=== PATIENT | male | born 1985 | race Caucasian/White ===

== ENCOUNTER 2018-05-09 18:07 | Emergency (ER) | payer MEDICAID ==
[~2018-05-09] VITALS: Ht 175.3 cm; Wt 169.0 kg
[~2018-05-09 18:07] MED LIST: ZOF4T PO
[2018-05-09] MEDS ORDERED: IBUP-1984 PO (19:11)
[2018-05-09 19:19] VITALS: BP 150/97
== END 2018-05-09 19:20 | disposition home or self-care (01) ==
LOC: ER 18:07
DX: M25.561 Pain in right knee (principal); J45.909 Unspecified asthma, uncomplicated; F12.90 Cannabis use, unspecified, uncomplicated; Z98.890 Other specified postprocedural states; Z79.899 Other long term (current) drug therapy
CPT/HCPCS: 99282; A6449

== ENCOUNTER 2018-12-13 10:33 | Emergency (ER) | payer MEDICAID ==
[~2018-12-13] VITALS: Ht 177.8 cm; Wt 168.2 kg
[2018-12-13 10:41] VITALS: BP 160/104
[2018-12-13] MEDS ORDERED: TETanus/Pertussis (Acell)/Diphther VAC/PF (Tdap-Adult) 0.5ml syringe IM ONE (10:55)
[2018-12-13] MEDS ORDERED: LIDOcaine 1% 30ml preserv. free vial IJ ONE (11:00)
== END 2018-12-13 12:09 | disposition home or self-care (01) ==
LOC: ER 10:34
DX: S61.210A Laceration without foreign body of right index finger without damage to nail, initial encounter (principal); J45.909 Unspecified asthma, uncomplicated; F12.90 Cannabis use, unspecified, uncomplicated; Z98.890 Other specified postprocedural states; W45.8XXA Other foreign body or object entering through skin, initial encounter; Y93.89 Activity, other specified; Y92.89 Other specified places as the place of occurrence of the external cause; Y99.9 Unspecified external cause status
CPT/HCPCS: 12001; 73140; 90471; 90715; 99283; J3490

== ENCOUNTER 2019-10-24 20:28 | Emergency (ER) | payer MEDICAID ==
[~2019-10-24] VITALS: Ht 177.8 cm; Wt 177.3 kg
[~2019-10-24 20:28] MED LIST changes: +IBUP-1986 PO
[2019-10-24 20:37] VITALS: BP 141/96
== END 2019-10-24 22:29 | disposition home or self-care (01) ==
LOC: ER 20:30
DX: R20.8 Other disturbances of skin sensation (principal); J45.909 Unspecified asthma, uncomplicated; F12.90 Cannabis use, unspecified, uncomplicated; Z98.890 Other specified postprocedural states; Z79.899 Other long term (current) drug therapy
CPT/HCPCS: 99281

== ENCOUNTER 2021-01-27 17:06 | Inpatient (IN) | payer MEDICAID ==
[~2021-01-27] VITALS: Ht 177.8 cm; Wt 170.5 kg
[2021-01-27 18:45] LABS: BASOPHILS % (AUTO) 0.3 % (0-1); EOSINOPHILS # (AUTO) 0.3 X10'3 (0-0.9); EOSINOPHILS % (AUTO) 3.1 % (0-6); HEMATOCRIT 41.4 % (42.0-52.0); LYMPHOCYTES # (AUTO) 1.7 X10'3 (1.1-4.8); LYMPHOCYTES % (AUTO) 20.8 % (21-51); MEAN CORPUSCULAR HEMOGLOBIN 28.7 PG (27.0-31.0); MEAN CORPUSCULAR HGB CONC 33.8 g/dL (33.0-36.5); MEAN CORPUSCULAR VOLUME 84.9 FL (78-98); MEAN PLATELET VOLUME 8.7 FL (7.4-10.4); MONOCYTES # (AUTO) 0.7 X10'3 (0-0.9); MONOCYTES % (AUTO) 8.5 % (2-12); NEUTROPHILS # (AUTO) 5.6 X10'3 (1.8-7.7); NEUTROPHILS % (AUTO) 67.3 % (42-75); PLATELET COUNT 201 X10'3 (140-440); RED BLOOD COUNT 4.88 X10'6 (4.70-6.10); WHITE BLOOD COUNT 8.3 X10'3 (4.5-11.0)
[2021-01-27 18:50] LABS: ALANINE AMINOTRANSFERASE 49 U/L (12-78); ALBUMIN 3.3 G/DL (3.4-5.0); ALBUMIN/GLOBULIN RATIO 0.8 (1.1-1.5); ALKALINE PHOSPHATASE 70 IU/L (46-116); ANION GAP 8 (8-16); ASPARTATE AMINO TRANSFERASE 55 U/L (10-37); BILIRUBIN,TOTAL 0.4 MG/DL (0.1-1.0); BLOOD UREA NITROGEN 9 MG/DL (7-18); BUN/CREATININE RATIO 10.7 (5.4-32.0); CALCIUM 8.9 MG/DL (8.5-10.1); CHLORIDE 103 MMOL/L (99-107); CREATININE 0.84 MG/DL (0.60-1.10); GLUCOSE 123 MG/DL (70-104); POTASSIUM 3.4 MMOL/L (3.5-5.1); SODIUM 138 MMOL/L (135-145); TOTAL CARBON DIOXIDE 27.1 MMOL/L (24-32); TOTAL PROTEIN 7.4 G/DL (6.4-8.2); eGFR > 90 ML/MIN
[2021-01-27] MEDS ORDERED: aspirin 81mg tab.chew PO ONE (19:00)
[2021-01-27] MEDS ORDERED: heparin 10,000 units/1 ML INJ IV ONE ×2 (19:00→19:05)
[2021-01-27] MEDS ORDERED: heparin 25,000 UNIT/250ml bag 250 ML IV SCH ×2 (19:00→19:15)
[2021-01-27] MEDS ORDERED: morphine 2 MG/ML inj. syringe IV PRN (19:15)
[2021-01-27] MEDS ORDERED: heparin 10,000 units/1 ML INJ IV PRN (19:15)
[2021-01-27] MEDS ORDERED: nitroGLYCERIN 0.4mg SUBLingual tab SL PRN (19:15)
[2021-01-27] MEDS ORDERED: magnesium Cl slow-release 64mg tablet PO PRN (19:15)
[2021-01-27] MEDS ORDERED: magnesium 2GM in 50ml NS 50 ML IV PRN (19:15)
[2021-01-27] MEDS ORDERED: acetaminophen 325mg tablet PO PRN (19:15)
[2021-01-27] MEDS ORDERED: potassium Cl 20 mEq SR tablet PO PRN ×2 (19:15)
[2021-01-27] MEDS ORDERED: ondansetron/PF 4mg/2ml inj IV PRN (19:15)
[2021-01-27] MEDS ORDERED: mag hydrox/Alum hydrox/simeth 30ml oral suspension PO PRN (19:15)
[2021-01-27] MEDS ORDERED: magnesium hydroxide 30ml (MOM) UD suspension PO PRN (19:15)
[2021-01-27] MEDS ORDERED: potassium Cl 40MEQ/1/2NS 520ml 520 ML IV PRN ×2 (19:15)
[2021-01-27] MEDS ORDERED: magnesium 4gm in 100ml NS 100 ML IV PRN (19:15)
[2021-01-27 19:22] LABS: PARTIAL THROMBOPLASTIN TIME 27 SECONDS (22-32)
[2021-01-27] MEDS: nitroGLYCERIN 0.4mg SUBLingual tab SL PRN ×2 (19:22→22:24)
[2021-01-27] MEDS ORDERED: ALBUTEROL (19:32)
[2021-01-27] MEDS ORDERED: OMEP-50 PO (19:32)
[2021-01-27] MEDS ORDERED: BUDE10.26 PO (19:32)
[2021-01-27] MEDS ORDERED: MONT10TA32 PO (19:32)
[2021-01-27 19:56] LABS: CHOL/HDL RATIO 4.2 (0.00-4.99); CHOLESTEROL 164 MG/DL (0-200); HDL CHOLESTEROL 39 MG/DL (35-60); LDL CHOLESTEROL 106 MG/DL (50-100); TRIGLYCERIDES 87 MG/DL (20-135)
[2021-01-27] MEDS: K and/or MAG REPLACEMENT MC SCH (20:00)
[2021-01-27] MEDS ORDERED: ALBU8HFA PO (20:32)
[2021-01-27 20:45] VITALS: BP 122/77
[2021-01-27 22:00] VITALS: BP 110/70
[2021-01-28] MEDS: heparin 10,000 units/1 ML INJ IV PRN ×2 (01:58→10:42)
[2021-01-28 02:28] VITALS: BP 132/87
[2021-01-28 06:00] VITALS: BP 135/81
--- NOTE | 2021-01-28 06:26 | NUR ---
Problems reprioritized. Patient report given, questions answered & plan of care reviewed with Sary SILVA.
--- NOTE | 2021-01-28 06:31 | NUR ---
Patient in room PCU 3016. I have received report from RICARDO Worrell and had the opportunity to ask questions and assume patient care.
--- NOTE | 2021-01-28 06:36 | NUR ---
Patient in room PCU 3016. I have received report from Gm SILVA and had the opportunity to ask questions and assume patient care.
[2021-01-28 06:45] LABS: BASOPHILS # (AUTO) 0.1 X10'3 (0-0.2); BASOPHILS % (AUTO) 0.8 % (0-1); EOSINOPHILS # (AUTO) 0.3 X10'3 (0-0.9); EOSINOPHILS % (AUTO) 3.5 % (0-6); HEMATOCRIT 42.3 % (42.0-52.0); HEMOGLOBIN 14.2 g/dl (14.0-17.9); LYMPHOCYTES # (AUTO) 2.4 X10'3 (1.1-4.8); MEAN CORPUSCULAR HEMOGLOBIN 28.9 PG (27.0-31.0); MEAN CORPUSCULAR HGB CONC 33.6 g/dL (33.0-36.5); MEAN CORPUSCULAR VOLUME 86.2 FL (78-98); MONOCYTES # (AUTO) 0.7 X10'3 (0-0.9); MONOCYTES % (AUTO) 9.1 % (2-12); NEUTROPHILS # (AUTO) 4.7 X10'3 (1.8-7.7); NEUTROPHILS % (AUTO) 57.6 % (42-75); PLATELET COUNT 215 X10'3 (140-440); RED BLOOD COUNT 4.91 X10'6 (4.70-6.10); RED CELL DISTRIBUTION WIDTH 14.2 % (11.5-14.5); WHITE BLOOD COUNT 8.1 X10'3 (4.5-11.0)
[2021-01-28 06:57] LABS: ALANINE AMINOTRANSFERASE 52 U/L (12-78); ALBUMIN 3.3 G/DL (3.4-5.0); ALBUMIN/GLOBULIN RATIO 0.8 (1.1-1.5); ALKALINE PHOSPHATASE 70 IU/L (46-116); ANION GAP 8 (8-16); ASPARTATE AMINO TRANSFERASE 86 U/L (10-37); BILIRUBIN,TOTAL 0.4 MG/DL (0.1-1.0); BLOOD UREA NITROGEN 10 MG/DL (7-18); BUN/CREATININE RATIO 12.7 (5.4-32.0); CHLORIDE 104 MMOL/L (99-107); CREATININE 0.79 MG/DL (0.60-1.10); GLUCOSE 116 MG/DL (70-104); POTASSIUM 3.4 MMOL/L (3.5-5.1); SODIUM 139 MMOL/L (135-145); TOTAL CARBON DIOXIDE 26.8 MMOL/L (24-32); TOTAL PROTEIN 7.7 G/DL (6.4-8.2); eGFR > 90 ML/MIN
[2021-01-28 07:02] LABS: MAGNESIUM 2.1 MG/DL (1.5-2.4)
[2021-01-28] MEDS ORDERED: aspirin 81mg tab.chew PO SCH (08:00)
[2021-01-28] MEDS: K and/or MAG REPLACEMENT MC SCH (08:00)
[2021-01-28 08:12] LABS: URINE AMPHETAMINE SCREEN NEGATIVE (Neg); URINE BARBITUATE SCREEN NEGATIVE (Neg); URINE BENZODIAZEPINES SCREEN NEGATIVE (Neg); URINE CANNABINOID SCREEN POSITIVE (Neg); URINE COCAINE SCREEN NEGATIVE (Neg); URINE METHADONE SCREEN NEGATIVE (Neg); URINE OPIATE SCREEN NEGATIVE (Neg); URINE PHENCYCLIDINE SCREEN NEGATIVE (Neg)
[2021-01-28] MEDS ORDERED: budesonide 0.5mg/2ml UD nebule IH SCH (09:00)
[2021-01-28] MEDS: albuterol 2.5 MG/3 ML nebule NEB SCH ×2 (09:17→15:00)
[2021-01-28 11:18] VITALS: BP 142/85
[2021-01-28] MEDS ORDERED: verapamil 2.5 mg/ml inj IV ONE (12:36)
[2021-01-28] MEDS ORDERED: fentaNYL/PF 50MCG/1 ML 2ML syringe ONE (12:37)
[2021-01-28] MEDS ORDERED: heparin 1,000 UNITS/NS 500ml 500 ML ONE ×2 (12:37)
[2021-01-28] MEDS ORDERED: midazolam 1 mg/ML 2ml injection ONE ×2 (12:37→13:14)
[2021-01-28] MEDS ORDERED: heparin 1,000unit/ml 10ml vial 10 ML ONE (12:37)
[2021-01-28] MEDS ORDERED: iohexol 350MG/ML 100ml bottle IV ONE (12:37)
[2021-01-28] MEDS ORDERED: LIDOcaine 1% (10mg/ml)w/preservative injection 20ml MDV ONE (12:37)
[2021-01-28] MEDS ORDERED: iohexol 350 MG/ML 50ML vial IV ONE (12:37)
[2021-01-28] MEDS ORDERED: nitroGLYCERIN-Tridil 50MG/D5W 250 ML IV ONE (12:38)
[2021-01-28] MEDS ORDERED: heparin 25,000 UNIT/250ml bag 250 ML IV ONE (13:00)
[2021-01-28] MEDS ORDERED: phenylephrine 10mg/ml inj. ONE (13:18)
--- NOTE | 2021-01-28 13:55 | NUR ---
PAGE TO DR. GODOY PAGER ID: [phone] MESSAGE: CHRISTINA GEORGE ([id number]) S/P PCI WITH NO STENTING, HEPARIN DRIP D/IRMA-PER DR. COOPER, PT BLUAY TO D/C TODAY. THANK YOU, JOEY
[2021-01-28] MEDS ORDERED: normal saline 1000ml 1,000 ML IV SCH (14:15)
[2021-01-28] MEDS ORDERED: OXAZEpam 15mg capsule PO PRN (14:20)
[2021-01-28] MEDS ORDERED: proCHLORperazine 10 MG/2 ml inj IV PRN (14:20)
[2021-01-28] MEDS ORDERED: HYDROcodone/acetaminophen 10/325mg tab PO PRN (14:20)
[2021-01-28] MEDS ORDERED: HYDROcodone/acetaminophen 5mg/325mg tablet PO PRN (14:20)
--- NOTE | 2021-01-28 15:43 | NUR ---
Pt stable for discharge per MD order, all discharge instructions reviewed with patient and all questions answered. All air released from radial pressure cuff per protocol, no bleeding appreciated, gauze and tegaderm applied. PIVs discontinued, cannula intact. Telemetry discontinued, telesales manager notified. All belongings collected and sent with patient. Picked up by family member in private vehicle, wheeled to lobby by staff.
--- NOTE | 2021-01-28 15:45 | NUR ---
PT IVS D/IRMA, CANNULAS INTACT, RIGHT RADIAL SITE PRESSURE CUFF D/IRMA, NO BLEED OR HEMATOMA, PATIENT WHEELED OUT VIA W/C BY RN WITH MOTHER AT SIDE, PATIENT ALERT, ORIENTED, STABLE AT DISCHARGE, ALL QUESTIONS ANSWERED IN REGUARDS TO FOLLOW UP CARE.
== END 2021-01-28 15:37 | disposition home or self-care (01) | DRG 190 ==
LOC: ER 17:06 → ED HOLD 19:14 → EDBEDREQ 20:00 → EDBEDREQTM 20:00 → PCU 3S 20:30
PROVIDERS: ADMIT Family Medicine; ATTEND Internal Medicine
PROC: 4A023N7 Measurement of Cardiac Sampling and Pressure, Left Heart, Percutaneous Approach (ICD-10-PCS; principal; 2021-01-28)
PROC: B2111ZZ Fluoroscopy of Multiple Coronary Arteries using Low Osmolar Contrast (ICD-10-PCS; 2021-01-28)
PROC: B2151ZZ Fluoroscopy of Left Heart using Low Osmolar Contrast (ICD-10-PCS; 2021-01-28)
DX: I21.4 Non-ST elevation (NSTEMI) myocardial infarction (principal); E66.01 Morbid (severe) obesity due to excess calories; E87.6 Hypokalemia; F17.290 Nicotine dependence, other tobacco product, uncomplicated; F12.90 Cannabis use, unspecified, uncomplicated; G25.81 Restless legs syndrome; G47.00 Insomnia, unspecified; Z20.822 Contact with and (suspected) exposure to COVID-19; I10 Essential (primary) hypertension; I20.1 Angina pectoris with documented spasm; J45.909 Unspecified asthma, uncomplicated; K21.9 Gastro-esophageal reflux disease without esophagitis; Z68.43 Body mass index [BMI] 50.0-59.9, adult; Z79.899 Other long term (current) drug therapy
CPT/HCPCS: 36415; 71045; 80053; 80061; 80305; 83735; 83880; 84484; 85025; 85610; 85730; 87081; 87635; 93005; 93306; 93458; 94640; 94760; 96365; 99152; 99153; 99285; A4620; A6258; C1769; C1894; G0378; J1644; J2001; J2250; J2370; J3010; J3490; J7030; J7626; Q9967

== ENCOUNTER 2021-06-08 13:50 | Emergency (ER) | payer MEDICAID ==
[~2021-06-08] VITALS: Ht 177.8 cm; Wt 164.0 kg
[~2021-06-08 13:50] MED LIST changes: +ALBU8HFA PO; +BUDE10.26 PO; -IBUP-1986 PO; +MONT10TA32 PO; +OMEP-50 PO; -ZOF4T PO
[2021-06-08 14:10] VITALS: BP 133/87
== END 2021-06-08 16:19 | disposition home or self-care (01) ==
LOC: ER 13:51
DX: S93.491A Sprain of other ligament of right ankle, initial encounter (principal); F12.10 Cannabis abuse, uncomplicated; Z79.899 Other long term (current) drug therapy; X58.XXXA Exposure to other specified factors, initial encounter; Y93.89 Activity, other specified; Y92.89 Other specified places as the place of occurrence of the external cause; Y99.8 Other external cause status
CPT/HCPCS: 73610; 99283

== ENCOUNTER 2024-10-08 23:04 | Emergency (ER) | payer OTHER ==
[~2024-10-08] VITALS: Ht 177.8 cm; Wt 176.2 kg
[~2024-10-08 23:04] MED LIST changes: +ALBU18HF2 INH; +MONT-40 PO; -MONT10TA32 PO; -OMEP-50 PO; +OMEP20CA16 PO
[2024-10-08] MEDS ORDERED: ALB0.5UD NEB (23:14)
[2024-10-08] MEDS: ipratropium/albuterol 3ml nebule NEB ONE (23:27)
[2024-10-08 23:28] VITALS: PULSE 82; RESP 18; O2SAT 96
[2024-10-08 23:35] VITALS: PULSE 87; RESP 18; O2SAT 98
[2024-10-09 01:33] VITALS: BP 144/70; PULSE 88; RESP 17; TEMP 98.1; O2SAT 98
== END 2024-10-08 23:40 | disposition home or self-care (01) ==
LOC: ER 23:04
DX: J45.901 Unspecified asthma with (acute) exacerbation (principal); F12.90 Cannabis use, unspecified, uncomplicated; Z98.890 Other specified postprocedural states
CPT/HCPCS: 94640; 94760; 99283; 99285